=== PATIENT | female | born 1995 | race Caucasian/White ===

== ENCOUNTER 2019-09-28 14:00 | Emergency (ER) | payer OTHER ==
[~2019-09-28] VITALS: Ht 149.9 cm; Wt 44.5 kg
[~2019-09-28 14:00] MED LIST: CELESTONE0.6 MG/5 M PO; MUCINEX600 MG PO; TUSSI-ORGANIDI473 M2 PO; ZITHROMAX500 MG PO
[2019-09-28] MEDS ORDERED: CLEOCIN HCL300 MG PO (19:08)
[2019-09-28] MEDS ORDERED: INTESTINEX680 M2 PO (19:11)
== END 2019-09-28 20:32 | disposition home or self-care (01) ==
LOC: ER 14:00
DX: J03.90 Acute tonsillitis, unspecified (principal); Z20.828 Contact with and (suspected) exposure to other viral communicable diseases